=== PATIENT | male | born 1950 | race Caucasian/White ===

== ENCOUNTER 2021-07-24 14:00 | Day surgery (SDC) | payer OTHER ==
[2021-07-20 09:15] LABS: BASOPHILS # (AUTO) 0.1 X10'3 (0-0.2); BASOPHILS % (AUTO) 0.8 % (0-1); EOSINOPHILS # (AUTO) 0.4 X10'3 (0-0.9); EOSINOPHILS % (AUTO) 4.2 % (0-6); HEMATOCRIT 48.8 % (42.0-52.0); HEMOGLOBIN 16.4 g/dl (14.0-17.9); LYMPHOCYTES % (AUTO) 24.4 % (21-51); MEAN CORPUSCULAR HEMOGLOBIN 31.8 PG (27.0-31.0); MEAN CORPUSCULAR HGB CONC 33.5 g/dL (33.0-36.5); MEAN PLATELET VOLUME 7.8 FL (7.4-10.4); MONOCYTES # (AUTO) 0.8 X10'3 (0-0.9); MONOCYTES % (AUTO) 9.2 % (2-12); NEUTROPHILS # (AUTO) 5.1 X10'3 (1.8-7.7); NEUTROPHILS % (AUTO) 61.4 % (42-75); PLATELET COUNT 210 X10'3 (140-440); RED BLOOD COUNT 5.14 X10'6 (4.70-6.10); RED CELL DISTRIBUTION WIDTH 13.8 % (11.5-14.5); WHITE BLOOD COUNT 8.4 X10'3 (4.5-11.0)
[2021-07-20 09:22] LABS: ALBUMIN 3.6 G/DL (3.4-5.0); ANION GAP 7 (8-16); BLOOD UREA NITROGEN 17 MG/DL (7-18); CALCIUM 8.8 MG/DL (8.5-10.1); CHLORIDE 105 MMOL/L (99-107); CREATININE 1.06 MG/DL (0.60-1.10); GLUCOSE 141 MG/DL (70-104); POTASSIUM 4.2 MMOL/L (3.5-5.1); SODIUM 143 MMOL/L (135-145); TOTAL CARBON DIOXIDE 31.3 MMOL/L (24-32); eGFR 69 ML/MIN
[2021-07-20 09:26] LABS: APTT 29 SECONDS (22-32)
[2021-07-24] VITALS (10 sets, daily range): BP systolic 122–138; BP diastolic 73–86
[~2021-07-24] VITALS: Ht 172.7 cm; Wt 96.9 kg
[2021-07-24] MEDS ORDERED: normal saline 1,000 ML IV SCH (14:15)
[2021-07-24] MEDS ORDERED: diphenhydrAMINE 25mg capsule PO PRN (14:15)
[2021-07-24] MEDS ORDERED: LORazepam 0.5 MG tablet PO PRN (14:15)
[2021-07-24] MEDS ORDERED: CHOL20004 PO (16:01)
[2021-07-24] MEDS ORDERED: METO100T7 PO (16:01)
[2021-07-24] MEDS ORDERED: LOSA50TA64 PO (16:01)
[2021-07-24] MEDS ORDERED: EZET10TA6 PO (16:01)
[2021-07-24] MEDS ORDERED: MEMA5TAB PO (16:01)
[2021-07-24] MEDS ORDERED: MULT-453 (16:01)
[2021-07-24] MEDS ORDERED: ATOR80TA PO (16:01)
[2021-07-24] MEDS ORDERED: VITC500T PO (16:01)
[2021-07-24] MEDS ORDERED: ZINC220C12 (16:01)
[2021-07-24] MEDS ORDERED: iohexol 350 MG/ML 50ML vial IV ONE (16:10)
[2021-07-24] MEDS ORDERED: heparin 1,000unit/ml 10ml vial 10 ML ONE (16:10)
[2021-07-24] MEDS ORDERED: midazolam 1 mg/ML 2ml injection ONE (16:10)
[2021-07-24] MEDS ORDERED: nitroGLYCERIN-Tridil 50MG/D5W 250 ML IV ONE (16:10)
[2021-07-24] MEDS ORDERED: verapamil 2.5 mg/ml inj IV ONE (16:10)
[2021-07-24] MEDS ORDERED: fentaNYL/PF 50MCG/1 ML 2ML syringe ONE (16:10)
[2021-07-24] MEDS ORDERED: LIDOCAINE 1% w/preservative (10 MG/ML) inj. 10mL VIAL ONE (16:11)
[2021-07-24] MEDS ORDERED: iohexol 350 MG/1 ML 200ml bottle ONE (16:29)
--- NOTE | 2021-07-24 16:40 | NUR ---
Pt cemetery laborer, report to Braulio GRIFFIN
--- NOTE | 2021-07-24 18:22 | NUR ---
Pt returns from hospital laboratory technician, Received report from Braulio GRIFFIN. Vasc band to right radial site, intact, no bleeding, bruising or hematoma noted. at bedside. Pt declines food at this time, water given to pt. Right arm placed up on pillow instructed pt not to use right arm.
--- NOTE | 2021-07-24 18:30 | NUR ---
Dr. Josh Champagne at bedside talking with pt and giving them update and results of cardiac cath, questions answered.
[2021-07-24] MEDS ORDERED: HYDROcodone/acetaminophen 10/325mg tab PO PRN (18:45)
[2021-07-24] MEDS ORDERED: HYDROcodone/acetaminophen 5mg/325mg tablet PO PRN (18:45)
--- NOTE | 2021-07-24 19:30 | NUR ---
Written and Verbal DC instructions given to pt and , questions answered, verbalize understanding.
--- NOTE | 2021-07-24 20:00 | NUR ---
Vasc band removed, dressing applied. No bleeding, bruising or hematoma noted. and pt visualized right radial site. PIV DC cath intact. assisted pt to get dressed, steady on feet.
--- NOTE | 2021-07-24 20:15 | NUR ---
DC to home with , transferred to private car via W/C with all belongings. Pt able to transfer self to car, steady gait.
== END 2021-07-24 20:15 | disposition home or self-care (01) ==
LOC: SSTAY O 14:00
PROVIDERS: ATTEND Internal Medicine Interventional Cardiology
DX: R94.39 Abnormal result of other cardiovascular function study (principal); I25.10 Atherosclerotic heart disease of native coronary artery without angina pectoris; I25.82 Chronic total occlusion of coronary artery; I10 Essential (primary) hypertension; E78.5 Hyperlipidemia, unspecified; Z79.01 Long term (current) use of anticoagulants; Z86.73 Personal history of transient ischemic attack (TIA), and cerebral infarction without residual deficits; Z85.46 Personal history of malignant neoplasm of prostate; Z79.899 Other long term (current) drug therapy
CPT/HCPCS: 36415; 80048; 85025; 85610; 85730; 92920; 93005; 93458; 99152; 99153; C1725; C1751; C1769; C1894; J1644; J2250; J3010; J3490; Q9967; 93459; A4620; A5120; C9607

== ENCOUNTER 2021-07-27 10:01 | Inpatient (IN) | payer OTHER, MEDICARE ==
[~2021-07-27] VITALS: Ht 172.7 cm; Wt 105.0 kg
[~2021-07-27 10:01] MED LIST: ATOR80TA PO; CHOL20004 PO; EZET10TA6 PO; LOSA50TA64 PO; MEMA5TAB PO; METO100T7 PO; MULT-453; VITC500T PO; ZINC220C12; heparin 10,000 units/1 ML INJ ONE; papaverine 30 mg/ml 2ml inj. ONE
[2021-07-27 10:44] LABS: BASOPHILS # (AUTO) 0.1 X10'3 (0-0.2); BASOPHILS % (AUTO) 0.9 % (0-1); EOSINOPHILS # (AUTO) 0.4 X10'3 (0-0.9); EOSINOPHILS % (AUTO) 3.8 % (0-6); HEMATOCRIT 49.3 % (42.0-52.0); HEMOGLOBIN 16.3 g/dl (14.0-17.9); LYMPHOCYTES # (AUTO) 2.3 X10'3 (1.1-4.8); LYMPHOCYTES % (AUTO) 23.5 % (21-51); MEAN CORPUSCULAR HGB CONC 33.1 g/dL (33.0-36.5); MEAN CORPUSCULAR VOLUME 93.6 FL (78-98); MEAN PLATELET VOLUME 8.1 FL (7.4-10.4); MONOCYTES # (AUTO) 0.9 X10'3 (0-0.9); MONOCYTES % (AUTO) 9.1 % (2-12); NEUTROPHILS # (AUTO) 6.1 X10'3 (1.8-7.7); NEUTROPHILS % (AUTO) 62.7 % (42-75); PLATELET COUNT 216 X10'3 (140-440); RED BLOOD COUNT 5.27 X10'6 (4.70-6.10); RED CELL DISTRIBUTION WIDTH 13.5 % (11.5-14.5); WHITE BLOOD COUNT 9.7 X10'3 (4.5-11.0)
[2021-07-27 10:56] LABS: ALANINE AMINOTRANSFERASE 46 U/L (12-78); ALBUMIN 3.8 G/DL (3.4-5.0); ALBUMIN/GLOBULIN RATIO 1.3 (1.1-1.5); ALKALINE PHOSPHATASE 63 IU/L (46-116); ANION GAP 5 (8-16); ASPARTATE AMINO TRANSFERASE 23 U/L (10-37); BILIRUBIN,TOTAL 1.2 MG/DL (0.1-1.0); BLOOD UREA NITROGEN 19 MG/DL (7-18); BUN/CREATININE RATIO 16.8 (5.4-32.0); CALCIUM 8.8 MG/DL (8.5-10.1); CHLORIDE 106 MMOL/L (99-107); CREATININE 1.13 MG/DL (0.60-1.10); GLUCOSE 102 MG/DL (70-104); POTASSIUM 4.3 MMOL/L (3.5-5.1); SODIUM 139 MMOL/L (135-145); TOTAL PROTEIN 6.7 G/DL (6.4-8.2); eGFR 64 ML/MIN
[2021-07-27] MEDS ORDERED: dextrose 50%-water 50ml dispensing syringe IV PRN (12:40)
[2021-07-27] MEDS ORDERED: insulin glargine (Lantus) pen - multi-dose SQ PRN (12:40)
[2021-07-27] MEDS ORDERED: MESSAGE TO PHARMACY IJ ONE (12:40)
[2021-07-27] MEDS ORDERED: MESSAGE TO NURSING PO ONE ×4 (12:40)
[2021-07-27] MEDS ORDERED: Insulin Reg/NS 100units/100mL 100 ML IV SCH (12:40)
[2021-07-27] MEDS ORDERED: diphenhydrAMINE 25mg capsule PO PRN (12:40)
[2021-07-27] MEDS ORDERED: gabapentin 400mg capsule PO ONE (12:40)
[2021-07-27] MEDS ORDERED: cefazolin/dext.iso 2gm/50ml 50 ML IV ONE (12:40)
[2021-07-27 13:07] LABS: APTT 29 SECONDS (22-32)
[2021-07-27 13:19] LABS: HEMOGLOBIN A1C 6.2 % (4.5-6.2)
--- NOTE | 2021-07-27 14:22 | NUR ---
CALLED AT [phone] TO SPEAK TO AIDEN MAGALLANES REGARDING INSULIN DRIP ORDER FOR PT . PER STAFF THE PROVIDER IS IN SURGERY AT THIS TIME AND CALL US BACK WHENEVER HE IS AVAILABLE.
--- NOTE | 2021-07-27 14:27 | NUR ---
SPOKE TO JEFF AND NOTIFIED REGARDING THE INSULIN DRIP ORDER , PER PROVIDER [facility] TO CHANGE IT TO [facility] SURICAL ORDERS.
--- NOTE | 2021-07-27 15:39 | NUR ---
CORPORATE ACCOUNTING MANAGER AT BEDSIDE.
[2021-07-27] MEDS ORDERED: ringers solution, lacted 1,000 ML IV ONE (15:40)
[2021-07-27 16:10] LABS: CLARITY,URINE CLEAR (Clear); COLOR,URINE YELLOW (Yellow); GLUCOSE, URINE NEGATIVE (Neg); KETONES,URINE NEGATIVE (Neg); LEUKOCYTE ESTERASE ,URINE NEGATIVE (Neg); NITRITES, URINE NEGATIVE (Neg); OCCULT BLOOD,URINE NEGATIVE (Neg); PH,URINE 6.5 (4.8-8.0); PROTEIN,URINE NEGATIVE (Neg); UROBILINOGEN,URINE 0.2 E.U/dL (0.2-1.0)
[2021-07-27 16:13] LABS: UA COLLECTION TYPE VOIDED
[2021-07-27 18:04] LABS: ABG BASE EXCESS 0.6 mmol/L (-2.0-2.0); ABG HCO3 24.2 mmol/L (22.0-26.0); ABG OXYGEN SATURATION 96.7 % (94-97); ABG PCO2 (T) 36.2 mmHg (35.0-48.0); ABG PO2 (T) 87.7 mmHg (75.0-100.0); ALLEN'S TEST POSITIVE; FCOHb 0.2 % (0.0-3.9); FMetHb 0.2 % (0.0-1.5); FO2Hb 96.3 % (94-97); TOTAL HEMOGLOBIN 16.4 G/dl (14.0-18.0)
[2021-07-27 20:29] VITALS: BP 129/74
[2021-07-27] MEDS: memantine 5mg tablet PO SCH (21:00)
[2021-07-27] MEDS: mupirocin 2% nasal ointment 1gm UD NS SCH (21:00)
[2021-07-27] MEDS: atorvastatin 20mg tablet PO SCH (21:00)
[2021-07-28] VITALS (20 sets, daily range): BP systolic 87–131; BP diastolic 42–70
[2021-07-28] MEDS ORDERED: cefazolin/dext.iso 2gm/100ml 100 ML IV ONE (06:00)
[2021-07-28] MEDS ORDERED: gabapentin 400mg capsule PO ONE (06:00)
[2021-07-28] MEDS ORDERED: LORazepam 2 mg/ml vial IV ONE (06:00)
[2021-07-28] MEDS ORDERED: famotidine/PF 10 mg/ml inj IV ONE (06:00)
[2021-07-28] MEDS ORDERED: insulin glargine (Lantus) pen - multi-dose SQ PRN ×2 (06:00→13:15)
[2021-07-28] MEDS: Insulin Reg/NS 100units/100mL 100 ML IV SCH ×2 (06:00→17:01)
[2021-07-28] MEDS ORDERED: metoprolol succinate 25mg (24-HOUR) SR. Tablet PO SCH (08:00)
[2021-07-28] MEDS: memantine 5mg tablet PO SCH ×2 (08:00→20:28)
[2021-07-28] MEDS: cholecalciferol (vitamin D3) 1,000 unit (25mcg) tablet PO SCH (08:00)
[2021-07-28] MEDS: mupirocin 2% nasal ointment 1gm UD NS SCH ×4 (08:37→20:29)
[2021-07-28] MEDS ORDERED: epiNEPHrine 1 mg/ml inj ONE (09:37)
[2021-07-28] MEDS ORDERED: ceFAZolin 1000mg inj ONE (09:37)
[2021-07-28] MEDS ORDERED: MIDAZolam 1mg/ml 10ml vial ONE (09:37)
[2021-07-28] MEDS ORDERED: SUFENTANIL CITRATE 50 MCG/ML 2ml ampule IV ONE (09:38)
[2021-07-28] MEDS ORDERED: propofol inj 20 ML IV ONE (09:39)
[2021-07-28] MEDS ORDERED: phenylephrine 10mg/ml inj. ONE (09:39)
[2021-07-28] MEDS ORDERED: 0.9 % SODIUM CHLORIDE 10 ML VIAL ONE (09:39)
[2021-07-28] MEDS ORDERED: rocuronium 10mg/ml inj IV ONE ×4 (09:39→11:37)
[2021-07-28] MEDS ORDERED: LIDOcaine 2% (20mg/ml) 5ml vial ONE (09:39)
[2021-07-28] MEDS: propofol 1000mg/100ml bottle 100 ML IV SCH (09:45)
[2021-07-28] MEDS ORDERED: fentaNYL/PF 50MCG/1 ML 2ML syringe IV PRN (09:45)
[2021-07-28] MEDS ORDERED: FENTANYL-0.9 % NACL/PF 100 ML IV PRN (09:55)
[2021-07-28] MEDS ORDERED: isoflurane 100ml inhalation liquid IH ONE (10:00)
[2021-07-28] MEDS ORDERED: DOBUTamine/D5W 500mg/250ml premix IV ONE (10:00)
[2021-07-28] MEDS ORDERED: MESSAGE TO NURSING PO ONE ×3 (10:00)
--- NOTE | 2021-07-28 10:10 | NUR ---
Pt taken to OR with CVOR team. They administered the ativan that I pulled as I was occupied with another patient. All personal belongings were taken by at bedside
[2021-07-28 11:02] LABS: ABG BASE EXCESS 2.1 mmol/L (-2.0-2.0); ABG HCO3 24.6 mmol/L (22.0-26.0); ABG OXYGEN SATURATION 99.8 % (94-97); ABG PCO2 32.7 mmHg (35.0-48.0); ABG PO2 419.6 mmHg (75.0-100.0); CL (ABG) 105 mmol/L (98-110); FCOHb 0.7 % (0.0-3.9); FMetHb 0.3 % (0.0-1.5); FO2Hb 98.8 % (94-97); GLUCOSE (ABG) 133 mg/dl (70-105); IONIZED CA (ABG) 1.14 mmol/L (1.10-1.43); TOTAL HEMOGLOBIN 15.7 G/dl (14.0-18.0)
[2021-07-28 11:45] LABS: ABG BASE EXCESS 1.6 mmol/L (-2.0-2.0); ABG HCO3 25.4 mmol/L (22.0-26.0); ABG OXYGEN SATURATION 99.5 % (94-97); ABG PCO2 37.2 mmHg (35.0-48.0); ABG PO2 292.3 mmHg (75.0-100.0); CL (ABG) 99 mmol/L (98-110); FCOHb 0.5 % (0.0-3.9); FMetHb 0.3 % (0.0-1.5); FO2Hb 98.7 % (94-97); GLUCOSE (ABG) 102 mg/dl (70-105); IONIZED CA (ABG) 0.97 mmol/L (1.10-1.43); TOTAL HEMOGLOBIN 11.9 G/dl (14.0-18.0)
[2021-07-28] MEDS ORDERED: magnesium 1 GM/2 ML inj ONE (12:00)
[2021-07-28] MEDS ORDERED: mannitol 12.5gm/50mL VIAL IV ONE (12:00)
[2021-07-28] MEDS ORDERED: sodium bicarbonate (8.4%) 1 mEq/ml syringe ONE (12:00)
[2021-07-28] MEDS ORDERED: calcium chloride 100 MG/1 ML inj IV ONE (12:00)
[2021-07-28] MEDS ORDERED: heparin 10,000 units/1 ML INJ ONE (12:00)
[2021-07-28] MEDS ORDERED: heparin 1,000 units/ml 10ml inj ONE (12:00)
[2021-07-28] MEDS ORDERED: aminocaproic acid 250 MG/1 ML inj. ONE (12:00)
[2021-07-28] MEDS ORDERED: albumin (human) 25% 100 ML IV solution IV ONE (12:00)
[2021-07-28] MEDS ORDERED: NORepinephrine bitart. inj. IV ONE (12:00)
[2021-07-28 12:15] LABS: ABG BASE EXCESS VENOUS 1.1 mmol/L (-2.0 - 2.0); ABG HCO3 VENOUS 26.2 mmol/L (21.0-28.0); ABG PCO2 VENOUS 43.1 mmHg (41.0-54.0); ABG PO2 VENOUS 41.6 mmHg (25.0-35.0); CL (ABG) 100 mmol/L (98-110); FCOHb VENOUS 0.8 %; FHHb VENOUS 20.1 %; FMetHb VENOUS 0.3 % (0.0 - 0.5); FO2Hb VENOUS 78.8 %; GLUCOSE (ABG) 118 mg/dl (70-105); IONIZED CA (ABG) 1.05 mmol/L (1.10-1.43); K (ABG) 4.6 mmol/L (3.5-5.0); TOTAL HEMOGLOBIN 13.2 G/dl (14.0-18.0)
[2021-07-28] MEDS ORDERED: papaverine 30 mg/ml 2ml inj. ICAR ONE (12:16)
[2021-07-28] MEDS ORDERED: heparin 10,000 units/1 ML INJ IR ONE (12:38)
[2021-07-28 12:56] LABS: ABG BASE EXCESS 0.2 mmol/L (-2.0-2.0); ABG HCO3 23.2 mmol/L (22.0-26.0); ABG OXYGEN SATURATION 99.7 % (94-97); ABG PCO2 32.7 mmHg (35.0-48.0); ABG PO2 379.1 mmHg (75.0-100.0); CL (ABG) 103 mmol/L (98-110); FCOHb 0.6 % (0.0-3.9); FMetHb 0.3 % (0.0-1.5); FO2Hb 98.8 % (94-97); GLUCOSE (ABG) 132 mg/dl (70-105); IONIZED CA (ABG) 1.22 mmol/L (1.10-1.43); K (ABG) 4.4 mmol/L (3.5-5.0); TOTAL HEMOGLOBIN 12.7 G/dl (14.0-18.0)
[2021-07-28 13:00] LABS: ACTIVATED CLOTTING TIME 122 SEC (101-148)
[2021-07-28] MEDS ORDERED: ondansetron/PF 4mg/2ml inj ONE (13:10)
[2021-07-28] MEDS ORDERED: dexamethasone sod phosphate 4mg/ml inj. ONE (13:10)
[2021-07-28] MEDS ORDERED: sodium phosphate inj. 15 MMOL in dextrose 5%-water 250 ML IV PRN (13:15)
[2021-07-28] MEDS ORDERED: Neutra Phos packet PO PRN (13:15)
[2021-07-28] MEDS ORDERED: potassium Cl 20 mEq SR tablet PO PRN (13:15)
[2021-07-28] MEDS ORDERED: metoclopramide 5 mg/ml inj IV PRN (13:15)
[2021-07-28] MEDS ORDERED: bisacodyl 10mg suppository rectal RC PRN (13:15)
[2021-07-28] MEDS ORDERED: morphine 4 MG/ML inj SYRINge IV PRN (13:15)
[2021-07-28] MEDS ORDERED: potassium CL 10mEq/100ml bag 100 ML IV PRN (13:15)
[2021-07-28] MEDS ORDERED: magnesium 4gm in 100ml NS 100 ML IV PRN (13:15)
[2021-07-28] MEDS ORDERED: acetaminophen 325mg tablet PO PRN ×2 (13:15)
[2021-07-28] MEDS ORDERED: sodium phosphate inj. 30 MMOL in dextrose 5%-water 250 ML IV PRN (13:15)
[2021-07-28] MEDS ORDERED: magnesium 2GM in 50ml NS 50 ML IV PRN (13:15)
[2021-07-28] MEDS ORDERED: Insulin Reg/NS 100units/100mL 100 ML IV SCH (13:15)
[2021-07-28] MEDS ORDERED: morphine 2 MG/ML inj. syringe IV PRN (13:15)
[2021-07-28] MEDS: nitroGLYCERIN-Tridil 50MG/D5W 250 ML IV SCH (13:15)
[2021-07-28] MEDS ORDERED: sodium chloride 0.45% 1,000 ML IV SCH (13:15)
[2021-07-28] MEDS ORDERED: mineral oil 133ml enema RC PRN (13:15)
[2021-07-28] MEDS ORDERED: ondansetron/PF 4mg/2ml inj IV PRN (13:15)
[2021-07-28] MEDS ORDERED: dextrose 50%-water 50ml dispensing syringe IV PRN (13:15)
[2021-07-28] MEDS ORDERED: niCARDipine-NS 40mg/200ml IVPB 200 ML IV PRN (13:15)
[2021-07-28] MEDS ORDERED: magnesium hydroxide 30ml (MOM) UD suspension PO PRN (13:15)
[2021-07-28] MEDS ORDERED: magnesium citrate 296ml oral solution PO PRN (13:15)
[2021-07-28] MEDS ORDERED: LIDOcaine 2% 5ml jelly ONE (13:22)
--- NOTE | 2021-07-28 13:45 | NUR ---
Received to room 2006, accompanied by MDs and surgical crew. Placed on ventilator, to monitor technician, arterial line and PA line pressure monitored. Chest tubes to suction at 20 cm. Blank cath to gravity drainage. Dressings are dry and intact. See assessment record. All vasoactive drugs are infusing via central line.
[2021-07-28 14:13] LABS: BASOPHILS % (AUTO) 0.3 % (0-1); EOSINOPHILS # (AUTO) 0.2 X10'3 (0-0.9); EOSINOPHILS % (AUTO) 1.7 % (0-6); HEMOGLOBIN 14.3 g/dl (14.0-17.9); LYMPHOCYTES # (AUTO) 1.2 X10'3 (1.1-4.8); LYMPHOCYTES % (AUTO) 8.7 % (21-51); MEAN CORPUSCULAR HGB CONC 33.3 g/dL (33.0-36.5); MEAN CORPUSCULAR VOLUME 93.1 FL (78-98); MEAN PLATELET VOLUME 8.7 FL (7.4-10.4); MONOCYTES # (AUTO) 0.7 X10'3 (0-0.9); MONOCYTES % (AUTO) 5.3 % (2-12); NEUTROPHILS # (AUTO) 11.2 X10'3 (1.8-7.7); PLATELET COUNT 168 X10'3 (140-440); RED BLOOD COUNT 4.61 X10'6 (4.70-6.10); RED CELL DISTRIBUTION WIDTH 13.3 % (11.5-14.5); WHITE BLOOD COUNT 13.3 X10'3 (4.5-11.0)
[2021-07-28 14:17] LABS: ABG BASE EXCESS -3.2 mmol/L (-2.0-2.0); ABG HCO3 20.4 mmol/L (22.0-26.0); ABG OXYGEN SATURATION 99.3 % (94-97); ABG PCO2 (T) 32.4 mmHg (35.0-48.0); ABG PO2 (T) 265.6 mmHg (75.0-100.0); FCOHb 0.2 % (0.0-3.9); FMetHb 0.5 % (0.0-1.5); FO2Hb 98.6 % (94-97); PATIENT TEMPERATURE 36.7; PEEP 5 cm H2O; RESPIRATORY RATE 12 b/min; TIDAL VOLUME 600 mL; TOTAL HEMOGLOBIN 15.3 G/dl (14.0-18.0)
[2021-07-28 15:22] LABS: ALANINE AMINOTRANSFERASE 34 U/L (12-78); ALBUMIN 3.3 G/DL (3.4-5.0); ALBUMIN/GLOBULIN RATIO 1.5 (1.1-1.5); ALKALINE PHOSPHATASE 42 IU/L (46-116); ANION GAP 9 (8-16); BILIRUBIN,TOTAL 1.8 MG/DL (0.1-1.0); BLOOD UREA NITROGEN 17 MG/DL (7-18); BUN/CREATININE RATIO 17.3 (5.4-32.0); CALCIUM 8.8 MG/DL (8.5-10.1); CHLORIDE 105 MMOL/L (99-107); CREATININE 0.98 MG/DL (0.60-1.10); GLUCOSE 143 MG/DL (70-104); MAGNESIUM 2.2 MG/DL (1.5-2.4); SODIUM 140 MMOL/L (135-145); TOTAL CARBON DIOXIDE 25.9 MMOL/L (24-32); TOTAL PROTEIN 5.5 G/DL (6.4-8.2); eGFR 75 ML/MIN
[2021-07-28 15:23] LABS: ASPARTATE AMINO TRANSFERASE 42 U/L (10-37); PHOSPHORUS 3.1 MG/DL (2.3-4.5); POTASSIUM 4.3 MMOL/L (3.5-5.1)
[2021-07-28] MEDS: potassium Cl 20mEq/100mL bag 100 ML IV PRN ×3 (15:29→23:38)
[2021-07-28] MEDS: ceFAZolin/D5W- 1GM premix 50 ML IV SCH ×2 (15:52→23:38)
[2021-07-28] MEDS: albumin (Human) 5% 250ml 250 ML IV PRN ×3 (15:53→22:28)
--- NOTE | 2021-07-28 18:11 | NUR ---
Problems reprioritized. Patient report given, questions answered & plan of care reviewed with Mac RN.
[2021-07-28 19:16] LABS: ABG BASE EXCESS -3.7 mmol/L (-2.0-2.0); ABG HCO3 21.9 mmol/L (22.0-26.0); ABG OXYGEN SATURATION 94.6 % (94-97); ABG PCO2 (T) 42.3 mmHg (35.0-48.0); ABG PO2 (T) 80.9 mmHg (75.0-100.0); FCOHb 0.3 % (0.0-3.9); FMetHb 0.2 % (0.0-1.5); FO2Hb 94.1 % (94-97); PATIENT TEMPERATURE 37.2; PEEP 5 cm H2O; RESPIRATORY RATE 19 b/min
[2021-07-28 19:44] LABS: BASOPHILS % (AUTO) 0.1 % (0-1); EOSINOPHILS % (AUTO) 0.1 % (0-6); HEMATOCRIT 42.7 % (42.0-52.0); HEMOGLOBIN 14.3 g/dl (14.0-17.9); LYMPHOCYTES % (AUTO) 5.5 % (21-51); MEAN CORPUSCULAR HEMOGLOBIN 31.3 PG (27.0-31.0); MEAN CORPUSCULAR HGB CONC 33.5 g/dL (33.0-36.5); MEAN CORPUSCULAR VOLUME 93.4 FL (78-98); MEAN PLATELET VOLUME 8.4 FL (7.4-10.4); MONOCYTES # (AUTO) 0.8 X10'3 (0-0.9); MONOCYTES % (AUTO) 4.3 % (2-12); NEUTROPHILS # (AUTO) 16.5 X10'3 (1.8-7.7); PLATELET COUNT 193 X10'3 (140-440); RED BLOOD COUNT 4.57 X10'6 (4.70-6.10); RED CELL DISTRIBUTION WIDTH 13.7 % (11.5-14.5); WHITE BLOOD COUNT 18.4 X10'3 (4.5-11.0)
[2021-07-28 19:46] LABS: ALBUMIN 3.5 G/DL (3.4-5.0); ANION GAP 12 (8-16); BLOOD UREA NITROGEN 22 MG/DL (7-18); BUN/CREATININE RATIO 17.7 (5.4-32.0); CALCIUM 8.3 MG/DL (8.5-10.1); CHLORIDE 107 MMOL/L (99-107); CREATININE 1.24 MG/DL (0.60-1.10); GLUCOSE 155 MG/DL (70-104); MAGNESIUM 2.8 MG/DL (1.5-2.4); PHOSPHORUS 4.9 MG/DL (2.3-4.5); POTASSIUM 4.3 MMOL/L (3.5-5.1); SODIUM 141 MMOL/L (135-145); TOTAL CARBON DIOXIDE 22.1 MMOL/L (24-32); eGFR 57 ML/MIN
[2021-07-28] MEDS ORDERED: mupirocin 2% ointment 22GM NS SCH (20:00)
[2021-07-28] MEDS: HYDROcodone/acetaminophen 10/325mg tab PO PRN (20:28)
[2021-07-28] MEDS: sennosides/docusate sodium tablet PO SCH (20:28)
[2021-07-28] MEDS: vancomycin/NS 1 GM ADD-VANTAGE 250 ML IV SCH (20:28)
[2021-07-28] MEDS: atorvastatin 20mg tablet PO SCH (20:28)
[2021-07-28] MEDS: gabapentin 300mg capsule PO SCH (20:29)
[2021-07-28] MEDS ORDERED: atorvastatin 10mg tablet PO SCH (21:00)
[2021-07-29] VITALS (24 sets, daily range): BP systolic 83–131; BP diastolic 43–77
[2021-07-29] MEDS: potassium Cl 20mEq/100mL bag 100 ML IV PRN (01:26)
[2021-07-29 03:46] LABS: BASOPHILS % (AUTO) 0.2 % (0-1); EOSINOPHILS % (AUTO) 0 % (0-6); HEMATOCRIT 38.4 % (42.0-52.0); HEMOGLOBIN 12.8 g/dl (14.0-17.9); LYMPHOCYTES # (AUTO) 0.7 X10'3 (1.1-4.8); LYMPHOCYTES % (AUTO) 3.7 % (21-51); MEAN CORPUSCULAR HEMOGLOBIN 31.2 PG (27.0-31.0); MEAN CORPUSCULAR HGB CONC 33.2 g/dL (33.0-36.5); MEAN CORPUSCULAR VOLUME 93.9 FL (78-98); MEAN PLATELET VOLUME 9.2 FL (7.4-10.4); MONOCYTES # (AUTO) 1.1 X10'3 (0-0.9); MONOCYTES % (AUTO) 5.9 % (2-12); NEUTROPHILS # (AUTO) 16.6 X10'3 (1.8-7.7); NEUTROPHILS % (AUTO) 90.2 % (42-75); PLATELET COUNT 159 X10'3 (140-440); RED BLOOD COUNT 4.09 X10'6 (4.70-6.10); RED CELL DISTRIBUTION WIDTH 13.5 % (11.5-14.5); WHITE BLOOD COUNT 18.4 X10'3 (4.5-11.0)
[2021-07-29 03:52] LABS: APTT 28 SECONDS (22-32)
[2021-07-29 04:04] LABS: ALANINE AMINOTRANSFERASE 29 U/L (12-78); ALBUMIN 3.5 G/DL (3.4-5.0); ALBUMIN/GLOBULIN RATIO 1.8 (1.1-1.5); ALKALINE PHOSPHATASE 31 IU/L (46-116); ANION GAP 8 (8-16); ASPARTATE AMINO TRANSFERASE 29 U/L (10-37); BILIRUBIN,TOTAL 0.9 MG/DL (0.1-1.0); BLOOD UREA NITROGEN 24 MG/DL (7-18); CALCIUM 8.1 MG/DL (8.5-10.1); CHLORIDE 109 MMOL/L (99-107); GLUCOSE 127 MG/DL (70-104); MAGNESIUM 2.3 MG/DL (1.5-2.4); PHOSPHORUS 4.3 MG/DL (2.3-4.5); POTASSIUM 5.6 MMOL/L (3.5-5.1); SODIUM 141 MMOL/L (135-145); TOTAL CARBON DIOXIDE 23.9 MMOL/L (24-32); TOTAL PROTEIN 5.4 G/DL (6.4-8.2); TRIGLYCERIDES 45 MG/DL (20-135); eGFR 60 ML/MIN
[2021-07-29] MEDS: HYDROcodone/acetaminophen 10/325mg tab PO PRN ×3 (04:09→17:46)
--- NOTE | 2021-07-29 06:30 | NUR ---
Patient in room CICU 2006. I have received report from GABY CASTAÑEDA, and had the opportunity to ask questions and assume patient care.
--- NOTE | 2021-07-29 07:00 | NUR ---
Called Dr. Mcintosh regarding hypotension and low urine output. Received order to give another 5% 250 ml albumin
[2021-07-29] MEDS: albumin (Human) 5% 250ml 250 ML IV PRN (07:03)
--- NOTE | 2021-07-29 08:30 | NUR ---
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 Pt would benefit from written/verbal high protein/HH diet eds w/ RD contact information provided. Addendum: 07/29/21 at [address] Amended: Links added.
[2021-07-29] MEDS: vancomycin/NS 1 GM ADD-VANTAGE 250 ML IV SCH ×2 (08:41→19:44)
[2021-07-29] MEDS: gabapentin 300mg capsule PO SCH ×3 (08:45→21:14)
[2021-07-29] MEDS: cholecalciferol (vitamin D3) 1,000 unit (25mcg) tablet PO SCH (08:46)
[2021-07-29] MEDS: sennosides/docusate sodium tablet PO SCH ×2 (08:46→19:42)
[2021-07-29] MEDS: memantine 5mg tablet PO SCH ×2 (08:46→19:43)
[2021-07-29] MEDS: aspirin 325mg tablet, delayed-release (Ecotrin) PO SCH (08:46)
[2021-07-29] MEDS: ceFAZolin/D5W- 1GM premix 50 ML IV SCH ×3 (08:52→23:42)
[2021-07-29] MEDS: mupirocin 2% nasal ointment 1gm UD NS SCH ×4 (08:58→21:14)
--- NOTE | 2021-07-29 18:14 | NUR ---
Problems reprioritized. Patient report given, questions answered & plan of care reviewed with GABY CURTIS.
[2021-07-29] MEDS: metoprolol tartrate 12.5mg (1/2 tablet) PO SCH (19:43)
[2021-07-29] MEDS: propofol 1000mg/100ml bottle 100 ML IV SCH (20:40)
[2021-07-29] MEDS: atorvastatin 20mg tablet PO SCH (21:14)
--- NOTE | 2021-07-29 21:53 | NUR ---
Pt art line no longer transducing, art line discontinued hemostasis obtained. Pt tolerated well, pt returned to bed without difficulties, pt encouraged to use IS/Flutter valve.
[2021-07-30] VITALS (9 sets, daily range): BP systolic 119–147; BP diastolic 60–76
[2021-07-30 03:11] LABS: BASOPHILS % (AUTO) 0.2 % (0-1); EOSINOPHILS % (AUTO) 0 % (0-6); HEMATOCRIT 37.6 % (42.0-52.0); HEMOGLOBIN 12.4 g/dl (14.0-17.9); LYMPHOCYTES # (AUTO) 0.7 X10'3 (1.1-4.8); LYMPHOCYTES % (AUTO) 3.3 % (21-51); MEAN CORPUSCULAR HEMOGLOBIN 30.9 PG (27.0-31.0); MEAN CORPUSCULAR VOLUME 93.7 FL (78-98); MEAN PLATELET VOLUME 9.2 FL (7.4-10.4); NEUTROPHILS # (AUTO) 19.6 X10'3 (1.8-7.7); NEUTROPHILS % (AUTO) 87.5 % (42-75); PLATELET COUNT 164 X10'3 (140-440); RED BLOOD COUNT 4.01 X10'6 (4.70-6.10); RED CELL DISTRIBUTION WIDTH 13.7 % (11.5-14.5); WHITE BLOOD COUNT 22.4 X10'3 (4.5-11.0)
[2021-07-30 03:25] LABS: ALBUMIN 3.4 G/DL (3.4-5.0); ANION GAP 4 (8-16); BLOOD UREA NITROGEN 32 MG/DL (7-18); BUN/CREATININE RATIO 31.1 (5.4-32.0); CALCIUM 8.3 MG/DL (8.5-10.1); CHLORIDE 107 MMOL/L (99-107); CREATININE 1.03 MG/DL (0.60-1.10); GLUCOSE 175 MG/DL (70-104); MAGNESIUM 2.3 MG/DL (1.5-2.4); PHOSPHORUS 3.3 MG/DL (2.3-4.5); SODIUM 140 MMOL/L (135-145); TOTAL CARBON DIOXIDE 28.9 MMOL/L (24-32); eGFR 71 ML/MIN
[2021-07-30] MEDS: pantoprazole 40mg Tablet.DR PO SCH (07:26)
[2021-07-30] MEDS: cholecalciferol (vitamin D3) 1,000 unit (25mcg) tablet PO SCH (07:26)
[2021-07-30] MEDS: aspirin 325mg tablet, delayed-release (Ecotrin) PO SCH (07:27)
[2021-07-30] MEDS: sennosides/docusate sodium tablet PO SCH ×2 (07:27→20:24)
[2021-07-30] MEDS: metoprolol tartrate 12.5mg (1/2 tablet) PO SCH ×2 (07:27→20:24)
[2021-07-30] MEDS: mupirocin 2% nasal ointment 1gm UD NS SCH ×4 (07:27→20:29)
[2021-07-30] MEDS: gabapentin 300mg capsule PO SCH (07:27)
[2021-07-30] MEDS: memantine 5mg tablet PO SCH ×2 (07:27→20:24)
[2021-07-30] MEDS ORDERED: furosemide 40mg/4ml inj IV ONE (08:40)
[2021-07-30] MEDS: nitroGLYCERIN-Tridil 50MG/D5W 250 ML IV SCH (12:26)
[2021-07-30] MEDS: HYDROcodone/acetaminophen 5mg/325mg tablet PO PRN (18:32)
[2021-07-30] MEDS: atorvastatin 20mg tablet PO SCH (20:24)
[2021-07-31] MEDS: Insulin Reg/NS 100units/100mL 100 ML IV SCH (00:40)
[2021-07-31 02:00] VITALS: BP 115/63
--- NOTE | 2021-07-31 04:56 | NUR ---
Pt ambulated hallway with RN. Walk was well tolerated. Pt denies any dizziness and does not appear to be short of breath. pt returned back to room, resting comfortably in bed. Endorses mild sternal pain. Will continue to monitor.
[2021-07-31 06:00] VITALS: BP 135/82
[2021-07-31 06:24] LABS: ACT @ 1.70 U 329 SEC (193-297); ACT @ 2.84 U 516 SEC (260-420); BASELINE ACT 162 SEC (101-148); PATIENT WEIGHT 95.0k KG
[2021-07-31 06:25] LABS: BASOPHILS % (AUTO) 0 % (0-1); EOSINOPHILS % (AUTO) 0 % (0-6); HEMATOCRIT 41.4 % (42.0-52.0); HEMOGLOBIN 13.7 g/dl (14.0-17.9); LYMPHOCYTES # (AUTO) 0.9 X10'3 (1.1-4.8); LYMPHOCYTES % (AUTO) 4.6 % (21-51); MEAN CORPUSCULAR HEMOGLOBIN 30.8 PG (27.0-31.0); MEAN CORPUSCULAR HGB CONC 33.2 g/dL (33.0-36.5); MEAN CORPUSCULAR VOLUME 92.8 FL (78-98); MEAN PLATELET VOLUME 9.1 FL (7.4-10.4); MONOCYTES # (AUTO) 2.2 X10'3 (0-0.9); MONOCYTES % (AUTO) 11.8 % (2-12); NEUTROPHILS # (AUTO) 15.6 X10'3 (1.8-7.7); NEUTROPHILS % (AUTO) 83.6 % (42-75); PLATELET COUNT 177 X10'3 (140-440); RED BLOOD COUNT 4.46 X10'6 (4.70-6.10); RED CELL DISTRIBUTION WIDTH 13.6 % (11.5-14.5); WHITE BLOOD COUNT 18.7 X10'3 (4.5-11.0)
[2021-07-31 06:38] LABS: ALBUMIN 3.2 G/DL (3.4-5.0); ANION GAP 7 (8-16); BLOOD UREA NITROGEN 28 MG/DL (7-18); BUN/CREATININE RATIO 30.8 (5.4-32.0); CALCIUM 8.5 MG/DL (8.5-10.1); CHLORIDE 106 MMOL/L (99-107); CREATININE 0.91 MG/DL (0.60-1.10); GLUCOSE 141 MG/DL (70-104); PHOSPHORUS 2.9 MG/DL (2.3-4.5); POTASSIUM 4.1 MMOL/L (3.5-5.1); SODIUM 142 MMOL/L (135-145); TOTAL CARBON DIOXIDE 28.8 MMOL/L (24-32); eGFR 82 ML/MIN
[2021-07-31] MEDS: pantoprazole 40mg Tablet.DR PO SCH (07:34)
[2021-07-31] MEDS: memantine 5mg tablet PO SCH ×2 (07:34→20:41)
[2021-07-31] MEDS: HYDROcodone/acetaminophen 10/325mg tab PO PRN ×5 (07:34→22:39)
[2021-07-31] MEDS: metoprolol tartrate 12.5mg (1/2 tablet) PO SCH ×2 (07:34→20:41)
[2021-07-31] MEDS: sennosides/docusate sodium tablet PO SCH ×2 (07:35→20:41)
[2021-07-31] MEDS: aspirin 325mg tablet, delayed-release (Ecotrin) PO SCH (07:35)
[2021-07-31] MEDS: furosemide 40mg/4ml inj IV SCH (07:35)
[2021-07-31] MEDS ORDERED: magnesium citrate 296ml oral solution PO ONE (07:55)
[2021-07-31] MEDS: mupirocin 2% nasal ointment 1gm UD NS SCH ×2 (08:00→13:00)
--- NOTE | 2021-07-31 09:47 | NUR ---
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 Currently on No Concentrated Sweets diet w/ mostly 100% intake of meals meeting est nutrient needs at this time. LBM 07/28 receiving routine bowel care. Attempted to provide CABG nutrition therapy ed though pt was not at bedside, Written ed w/ RD contact info left at pt's bedside table. No nutrition intervention implemented at this time, will continue to monitor. Recs: 1. Continue NCS diet as tolerated 2. Bowel care per rx 3. Weekly wts Addendum: 07/31/21 at [address] Amended: Links added.
[2021-07-31] MEDS ORDERED: ASPI-1071 PO (10:50)
[2021-07-31] MEDS ORDERED: HYDR-3972 PO ×2 (10:50→13:21)
[2021-07-31] MEDS ORDERED: LOP25T PO (10:50)
[2021-07-31 11:00] VITALS: BP 110/83
[2021-07-31 15:00] VITALS: BP 131/81
[2021-07-31 18:00] VITALS: BP 161/90
[2021-07-31] MEDS: atorvastatin 20mg tablet PO SCH (20:41)
[2021-07-31 22:00] VITALS: BP 118/78
[2021-08-01 02:00] VITALS: BP 118/77
[2021-08-01 05:51] LABS: BASOPHILS % (AUTO) 0.1 % (0-1); EOSINOPHILS # (AUTO) 0.1 X10'3 (0-0.9); EOSINOPHILS % (AUTO) 0.7 % (0-6); HEMATOCRIT 45.8 % (42.0-52.0); HEMOGLOBIN 15.1 g/dl (14.0-17.9); LYMPHOCYTES # (AUTO) 1.7 X10'3 (1.1-4.8); LYMPHOCYTES % (AUTO) 12.3 % (21-51); MEAN CORPUSCULAR HEMOGLOBIN 30.9 PG (27.0-31.0); MEAN CORPUSCULAR VOLUME 93.8 FL (78-98); MEAN PLATELET VOLUME 8.8 FL (7.4-10.4); MONOCYTES # (AUTO) 1.8 X10'3 (0-0.9); MONOCYTES % (AUTO) 12.5 % (2-12); NEUTROPHILS # (AUTO) 10.5 X10'3 (1.8-7.7); NEUTROPHILS % (AUTO) 74.4 % (42-75); PLATELET COUNT 199 X10'3 (140-440); RED BLOOD COUNT 4.88 X10'6 (4.70-6.10); RED CELL DISTRIBUTION WIDTH 13.7 % (11.5-14.5); WHITE BLOOD COUNT 14.2 X10'3 (4.5-11.0)
[2021-08-01 06:06] LABS: ALBUMIN 3.5 G/DL (3.4-5.0); ANION GAP 3 (8-16); BLOOD UREA NITROGEN 38 MG/DL (7-18); BUN/CREATININE RATIO 36.2 (5.4-32.0); CALCIUM 8.9 MG/DL (8.5-10.1); CHLORIDE 104 MMOL/L (99-107); CREATININE 1.05 MG/DL (0.60-1.10); GLUCOSE 126 MG/DL (70-104); MAGNESIUM 2.2 MG/DL (1.5-2.4); PHOSPHORUS 3.9 MG/DL (2.3-4.5); POTASSIUM 4.1 MMOL/L (3.5-5.1); SODIUM 139 MMOL/L (135-145); TOTAL CARBON DIOXIDE 31.9 MMOL/L (24-32); eGFR 69 ML/MIN
[2021-08-01 07:00] VITALS: BP 111/68
[2021-08-01] MEDS: HYDROcodone/acetaminophen 5mg/325mg tablet PO PRN (07:49)
[2021-08-01] MEDS: memantine 5mg tablet PO SCH (07:50)
[2021-08-01] MEDS: pantoprazole 40mg Tablet.DR PO SCH (07:50)
[2021-08-01] MEDS: furosemide 40mg/4ml inj IV SCH (07:50)
[2021-08-01] MEDS: metoprolol tartrate 12.5mg (1/2 tablet) PO SCH (07:52)
[2021-08-01] MEDS: aspirin 325mg tablet, delayed-release (Ecotrin) PO SCH (07:52)
[2021-08-01] MEDS: sennosides/docusate sodium tablet PO SCH (07:52)
[2021-08-01 11:00] VITALS: BP 98/71
== END 2021-08-01 12:31 | disposition home or self-care (01) | DRG 235 ==
LOC: ER 10:01 → ED HOLD 12:44 → PCU 3S 19:45 → PACU 07-28 11:26 → CICU 2S 07-28 13:58 → PCU 3S 07-30 15:48
PROVIDERS: ADMIT Thoracic Surgery (Cardiothoracic Vascular Surgery); ATTEND Thoracic Surgery (Cardiothoracic Vascular Surgery)
PROC: 021209W Bypass Coronary Artery, Three Arteries from Aorta with Autologous Venous Tissue, Open Approach (ICD-10-PCS; 2021-07-28)
PROC: 06BQ4ZZ Excision of Left Saphenous Vein, Percutaneous Endoscopic Approach (ICD-10-PCS; 2021-07-28)
PROC: B24BZZ4 Ultrasonography of Heart with Aorta, Transesophageal (ICD-10-PCS; 2021-07-28)
PROC: 5A1221Z Performance of Cardiac Output, Continuous (ICD-10-PCS; 2021-07-28)
PROC: 02100Z9 Bypass Coronary Artery, One Artery from Left Internal Mammary, Open Approach (ICD-10-PCS; principal; 2021-07-28 10:00)
DX: I25.110 Atherosclerotic heart disease of native coronary artery with unstable angina pectoris (principal); N17.0 Acute kidney failure with tubular necrosis; I10 Essential (primary) hypertension; Z20.822 Contact with and (suspected) exposure to COVID-19; E78.5 Hyperlipidemia, unspecified; Z82.49 Family history of ischemic heart disease and other diseases of the circulatory system; Z87.891 Personal history of nicotine dependence; Z79.899 Other long term (current) drug therapy; E87.70 Fluid overload, unspecified
CPT/HCPCS: 36415; 36600; 71045; 71046; 80048; 80053; 81003; 82330; 82435; 82803; 82947; 82948; 83036; 83735; 83880; 84100; 84132; 84295; 84478; 84484; 85018; 85025; 85347; 85610; 85730; 86885; 86900; 86901; 86920; 87070; 87081; 87635; 93005; 93312; 93325; 93880; 93970; 94002; 94010; 94667; 94760; 97110; 97116; 97161; 97530; 99285; A4618; A6258; A6446; A6449; A7000; A7048; C1751; G0378; J0171; J0690; J1100; J1250; J1644; J1815; J1940; J2060; J2150; J2250; J2270; J2370; J2405; J2440; J2704; J3010; J3370; J3475; J3480; J3490; J7030; J7040; J7050; J7120; P9045; P9047

== ENCOUNTER 2022-04-05 09:50 | Day surgery (SDC) | payer OTHER, MEDICARE ==
[2022-03-28 16:40] LABS: CLARITY,URINE CLEAR (Clear); COLOR,URINE YELLOW (Yellow); GLUCOSE, URINE NEGATIVE (Neg); KETONES,URINE NEGATIVE (Neg); LEUKOCYTE ESTERASE ,URINE NEGATIVE (Neg); NITRITES, URINE NEGATIVE (Neg); OCCULT BLOOD,URINE NEGATIVE (Neg); PH,URINE 5.5 (4.8-8.0); PROTEIN,URINE NEGATIVE (Neg); UROBILINOGEN,URINE 0.2 E.U/dL (0.2-1.0)
[2022-03-28 16:41] LABS: BASOPHILS # (AUTO) 0.1 X10'3 (0-0.2); BASOPHILS % (AUTO) 0.9 % (0-1); EOSINOPHILS # (AUTO) 0.2 X10'3 (0-0.9); EOSINOPHILS % (AUTO) 3.3 % (0-6); LYMPHOCYTES # (AUTO) 2.3 X10'3 (1.1-4.8); LYMPHOCYTES % (AUTO) 31.4 % (21-51); MEAN CORPUSCULAR HEMOGLOBIN 32.2 PG (27.0-31.0); MEAN CORPUSCULAR HGB CONC 34.1 g/dL (33.0-36.5); MEAN CORPUSCULAR VOLUME 94.3 FL (78-98); MEAN PLATELET VOLUME 8.2 FL (7.4-10.4); MONOCYTES # (AUTO) 0.9 X10'3 (0-0.9); MONOCYTES % (AUTO) 11.6 % (2-12); NEUTROPHILS # (AUTO) 3.9 X10'3 (1.8-7.7); NEUTROPHILS % (AUTO) 52.8 % (42-75); PRE OP HEMATOCRIT 48.5 % (42.0-52.0); PRE OP HEMOGLOBIN 16.6 g/dL (14.0-17.9); PRE OP PLATELET COUNT 227 X10'3 (140-440); RED BLOOD COUNT 5.15 X10'6 (4.70-6.10); RED CELL DISTRIBUTION WIDTH 14.6 % (11.5-14.5)
[2022-03-28 16:42] LABS: ALBUMIN 3.7 G/DL (3.4-5.0); ALBUMIN/GLOBULIN RATIO 1.4 (1.1-1.5); ALKALINE PHOSPHATASE 66 IU/L (46-116); BLOOD UREA NITROGEN 23 MG/DL (7-18); BUN/CREATININE RATIO 20.5 (5.4-32.0); CALCIUM 8.7 MG/DL (8.5-10.1); CHLORIDE 102 MMOL/L (99-107); CREATININE 1.12 MG/DL (0.60-1.10); PRE OP ALT 41 U/L (30-65); PRE OP ANION GAP 5 (8-16); PRE OP AST 26 U/L (10-37); PRE OP GLUCOSE 91 MG/DL (70-104); PRE OP POTASSIUM 4.2 MMOL/L (3.4-5.1); PRE OP SODIUM 139 MMOL/L (135-145); TOTAL CARBON DIOXIDE 32.2 MMOL/L (24-32); TOTAL PROTEIN 6.4 G/DL (6.4-8.2); eGFR 64 ML/MIN
[2022-03-28 16:56] LABS: UA COLLECTION TYPE VOIDED
[2022-04-05] VITALS (16 sets, daily range): BP systolic 124–166; BP diastolic 74–100
[~2022-04-05] VITALS: Ht 172.7 cm; Wt 99.0 kg
[~2022-04-05 09:50] MED LIST changes: +ASPI81TA52 PO; -CHOL20004 PO; +DOCUMENT DATE & TIME OF BETA-BLOCKER PO ONE; -LOSA50TA64 PO; -MEMA5TAB PO; +METO-411 PO; -METO100T7 PO; -MULT-453; -VITC500T PO; -ZINC220C12; +ceFAZolin inj. 2,000 MG in dextrose 5%-water 100 ML IV ONE; +famotidine 20mg tablet PO ONE; -heparin 10,000 units/1 ML INJ ONE; -papaverine 30 mg/ml 2ml inj. ONE; +ringers solution, lacted 1,000 ML IV SCH
[2022-04-05] MEDS ORDERED: bacitracin 15gm ointment TP ONE ×2 (11:45→12:55)
[2022-04-05] MEDS ORDERED: BUPIVAcaine 0.5% inj/PF 0 ML ONE (11:45)
[2022-04-05] MEDS ORDERED: sevoflurane 250ml liquid IH ONE (12:05)
[2022-04-05] MEDS ORDERED: fentaNYL/PF 50MCG/1 ML 2ML syringe ONE (12:17)
[2022-04-05] MEDS ORDERED: dexamethasone sod phosphate 4mg/ml inj. ONE (12:57)
[2022-04-05] MEDS ORDERED: ondansetron/PF 4mg/2ml inj ONE (12:57)
[2022-04-05] MEDS ORDERED: rocuronium 10mg/ml inj IV ONE (12:57)
[2022-04-05] MEDS ORDERED: ROPIVAcaine 0.5% (5mg/ml) 30ml vial ONE (12:57)
[2022-04-05] MEDS ORDERED: propofol inj 20 ML IV ONE (12:57)
[2022-04-05] MEDS ORDERED: LIDOcaine 2% (20mg/ml) 5ml vial ONE (12:57)
[2022-04-05] MEDS ORDERED: midazolam 1 mg/ML 2ml injection ONE (12:57)
[2022-04-05] MEDS ORDERED: 0.9 % SODIUM CHLORIDE 10 ML VIAL ONE ×2 (12:57→13:07)
[2022-04-05] MEDS ORDERED: ePHEDrine 50MG/ML INJ. ONE (13:07)
[2022-04-05] MEDS ORDERED: labetalol 20mg/4ml (5mg/ml) syringe IV PRN (13:10)
[2022-04-05] MEDS ORDERED: acetaminophen 1,000mg/100ml IV 100 ML IV PRN (13:10)
[2022-04-05] MEDS ORDERED: morphine 2 MG/ML inj. syringe IV PRN (13:10)
[2022-04-05] MEDS ORDERED: ketorolac tromethamine 15mg/ml inj. IV ONE (13:10)
[2022-04-05] MEDS ORDERED: proCHLORperazine 10 MG/2 ml inj IV PRN (13:10)
[2022-04-05] MEDS ORDERED: meperidine/PF 25mg/ml syringe IV PRN ×3 (13:10)
[2022-04-05] MEDS ORDERED: ringers solution, lacted 1,000 ML IV SCH (13:10)
[2022-04-05] MEDS ORDERED: hydrALAZINE 20mg/ml inj. IV PRN (13:10)
[2022-04-05] MEDS ORDERED: morphine 4 MG/ML inj SYRINge IV PRN (13:10)
[2022-04-05] MEDS ORDERED: ondansetron/PF 4mg/2ml inj IV PRN (13:10)
--- NOTE | 2022-04-05 17:04 | NUR ---
PT DC'D HOME INTO CARE OF SIGNIFICANT OTHER. OUT OF PACU BY WHEELCHAIR TO POV WITHOUT INCIDENT. PT REPORTS NO PAIN, VSS, AAOX4. DC INSTRUCTIONS PROVIDED, WRITTEN AND VERBAL, PT VERBALIZED UNDERSTANDING. Addendum: 04/05/22 at 1938 by Ernst Mcintosh RN Amended: Links added.
== END 2022-04-05 17:04 | disposition home or self-care (01) ==
LOC: PAS 09:50
PROVIDERS: ATTEND Podiatrist Foot & Ankle Surgery
DX: S86.012A Strain of left Achilles tendon, initial encounter (principal); M76.62 Achilles tendinitis, left leg; M25.472 Effusion, left ankle; M62.81 Muscle weakness (generalized); M17.12 Unilateral primary osteoarthritis, left knee; G89.18 Other acute postprocedural pain; I25.10 Atherosclerotic heart disease of native coronary artery without angina pectoris; I10 Essential (primary) hypertension; F32.9 Major depressive disorder, single episode, unspecified; E66.9 Obesity, unspecified; Z68.31 Body mass index [BMI] 31.0-31.9, adult; Z86.73 Personal history of transient ischemic attack (TIA), and cerebral infarction without residual deficits; Z98.890 Other specified postprocedural states; Z87.891 Personal history of nicotine dependence; Z72.89 Other problems related to lifestyle; Z95.1 Presence of aortocoronary bypass graft; Z79.899 Other long term (current) drug therapy; Z79.82 Long term (current) use of aspirin; X58.XXXA Exposure to other specified factors, initial encounter; Y93.89 Activity, other specified; Y92.89 Other specified places as the place of occurrence of the external cause; Y99.8 Other external cause status
CPT/HCPCS: 27650; 27687; 27691; 36415; 64445; 73600; 76000; 80053; 81003; 82948; 85025; 93005; A6222; C1713; J0690; J1100; J2250; J2405; J2704; J2795; J3010; J3490; J7030; J7060; J7120; Z7506; Z7508; Z7512; A4215; A4618; A6253; A6449; A7000; S0020

== ENCOUNTER 2022-08-04 14:24 | Emergency (ER) | payer OTHER, MEDICARE ==
[~2022-08-04] VITALS: Ht 172.7 cm; Wt 100.0 kg
[~2022-08-04 14:24] MED LIST changes: -DOCUMENT DATE & TIME OF BETA-BLOCKER PO ONE; -ceFAZolin inj. 2,000 MG in dextrose 5%-water 100 ML IV ONE; -famotidine 20mg tablet PO ONE; -ringers solution, lacted 1,000 ML IV SCH
[2022-08-04 14:31] VITALS: BP 133/80
== END 2022-08-04 15:56 | disposition home or self-care (01) ==
LOC: ER 14:25
DX: S86.012A Strain of left Achilles tendon, initial encounter (principal); R60.0 Localized edema; X58.XXXA Exposure to other specified factors, initial encounter; Y93.89 Activity, other specified; Y92.89 Other specified places as the place of occurrence of the external cause; Y99.8 Other external cause status
CPT/HCPCS: 87070; 87186; 99283